=== PATIENT | female | born 1960 | race Caucasian/White ===

== ENCOUNTER → 2018-01-30 | Day surgery (SDC) | payer BC ==
[~2018-01-30] MED LIST: ASPIR 8181 MG PO; ATACAND4 MG PO; ATENOLOL25 MG PO; ATROPINE SULFATE 1 MG/ML VIAL ONE; COQ-10100 MG PO; FENTANYL CITRATE/PF 100MCG/2 ML INJ ONE; KRILL OIL PO; MIDAZOLAM HCL 5MG/ML 2ML VIAL ONE; PANTOPRAZOLE SO40 MG PO; PRAVASTATIN SOD80 MG PO; PROPOFOL IV EMULSION 10 MG/ML 20 ML VIAL ONE; SINGULAIR10 MG PO; SYMBICORT 16010.2 GM INH; VENTOLIN HFA18 GM INH; VITAMIN B-12 PO; VITAMIN C PO; ZYRTEC10 MG PO
--- OUTSIDE RECORDS SUMMARY | 2018-01-30 06:12 | XMS REPORT | Clinical Summary ---
Author Author [facility] Address Unknown Phone Unavailable Care Team Providers Care [employer] Name Role Phone PCP Unavailable Allergies No Known Allergies Current Medications Not on file Active Problems Not on file Social History Tobacco Use Types Packs/Day Years Used Date Never Assessed Sex Assigned at Date Recorded Not on file Last Filed Vital Signs Not on file Plan of Treatment Not on file Results Not on fileafter 01/29/2017
--- NOTE | 2018-01-30 13:53 | Operative Report ---
DATE OF PROCEDURE: January 30, 2018 REFERRING PHYSICIAN: Dr. Shirin Weinstein. PROCEDURE PERFORMED: Colonoscopy and polypectomy. INDICATIONS FOR COLONOSCOPY: Colorectal cancer screening, personal history of colon polyps, father with colon cancer. MEDICATION: Patient was done under MAC. Please see anesthesiologist's note. PROCEDURE: With patient in the left lateral decubitus position, the flexible fiberoptic Olympus colonoscope was inserted into the rectum with ease and advanced all the way to the cecum. Two minute polyps were hot biopsied from the cecum. The ascending appeared to be within normal limits. One polyp was hot biopsied from the transverse colon. One polyp was snared from the descending colon. Minimal diverticulosis was noted in the sigmoid colon. The scope was then retroflexed into the distal rectum and small internal hemorrhoids were noted, none of which was actively bleeding. The scope was then straightened out. It was subsequently withdrawn. Patient tolerated the procedure well. IMPRESSION: 1. Cecal polyps hot biopsied times 2. 2. Transverse colon polyp hot biopsied times 1. 3. Descending colon polyp snared times 1. 4. Diverticulosis, minimal, sigmoid colon. 5. Internal hemorrhoids, none actively bleeding. PLAN: Follow up histology. Initiate high-fiber low-fat diet. Initiate high-fiber supplement. Patient will need a followup colonoscopy in 3 years. A total of 4 polyps were removed. Job#: [id number] EV cc:SHIRIN WEINSTEIN MD
== END | disposition home or self-care (01) ==
LOC: OR 06:08
PROVIDERS: ATTEND Internal Medicine Gastroenterology
DX: Z12.11 Encounter for screening for malignant neoplasm of colon (principal); D12.0 Benign neoplasm of cecum; D12.3 Benign neoplasm of transverse colon; D12.4 Benign neoplasm of descending colon; K57.30 Diverticulosis of large intestine without perforation or abscess without bleeding; K64.8 Other hemorrhoids; K21.0 Gastro-esophageal reflux disease with esophagitis; I10 Essential (primary) hypertension; I47.1 Supraventricular tachycardia; J44.9 Chronic obstructive pulmonary disease, unspecified; I45.10 Unspecified right bundle-branch block; F17.210 Nicotine dependence, cigarettes, uncomplicated; Z01.810 Encounter for preprocedural cardiovascular examination; Z79.82 Long term (current) use of aspirin; Z68.28 Body mass index [BMI] 28.0-28.9, adult; Z80.0 Family history of malignant neoplasm of digestive organs
CPT/HCPCS: 45384; 45385; 93005; J0461; J2250